=== PATIENT | male | born 1970 | race Caucasian/White ===

== ENCOUNTER 2018-02-15 00:26 | Emergency (ER) | payer BC ==
[~2018-02-15] VITALS: Ht 180.3 cm; Wt 79.6 kg
[~2018-02-15 00:26] MED LIST: CILASTATIN; Daptomycin; IMIPENEM; [UNRECOGNIZED DRUG - CODE] PO
[2018-02-15 00:33] VITALS: TEMP 36.5; Ht 180.3 cm; Wt 79.6 kg
--- NOTE | 2018-02-15 02:33 | EMERGENCY ROOM VISIT NOTE ---
History First contact with patient: 00:36 Chief Complaint: FOOT PAIN Stated Complaint: LEFT FOOT PAIN History of Present Illness The patient is a 47 year old male who presents to the Emergency Room via private vehicle with complaints of "left foot pain". The patient states that about 3 weeks ago he struck the top of his left foot off with a metal object. He notes that it hurt for about 1 day and then went away. He then states that tonight while sleeping he began with pain in the same area that radiated to the medial aspect of his left foot. He rates the overall pain as a 6/10. No fevers , chills. He notes no history of clots. It is worse with ambulation. Review of Systems A complete 6-point Review of Systems was discussed with the patient, with pertinent positives and negatives listed in the History of Present Illness. All remaining Review of Systems questions can be considered negative unless otherwise specified. Past Medical/Surgical History Surgical Problems: (1) H/O vasectomy Family History No significant family history Social History Smoking Status: Never Smoker Alcohol Use: occasionally Marital Status: in relationship Housing Status: lives with family, lives with significant other Current/Historical Medications Scheduled Niacin (Niacin), 500 MG PO BID Physical Exam Vital Signs Date Time Temp Pulse Resp B/P (MAP) Pulse Ox O2 Delivery O2 Flow Rate FiO2 02/15/18 02:40 62 18 114/69 100 Room Air 02/15/18 02:07 65 18 100/77 99 Room Air 02/15/18 00:33 36.5 67 18 108/57 98 Room Air Physical Exam VITAL SIGNS - Vital signs and nursing notes were reviewed. Stable. Afebrile. GENERAL -47-year-old male appearing his stated age who is in no acute distress. Communicates well with provider and answers questions appropriately. SKIN - Without rashes. No meningeal or petechial rash. The skin overlying the patient's left foot is unremarkable. EXTREMITIES - No clubbing or peripheral cyanosis. No pretibial edema present. Point tenderness overlying the patient's proximal anterior metatarsals and medial foot inferior to the left medial malleolus region. No breaks in integument. +5/5 strength noted in UE/LE bilaterally. Medical Decision & Procedures ER Provider Diagnostic Interpretation: Ultrasound venous left lower extremity: Findings: Normal compressibility is demonstrated from the common femoral vein to the popliteal vein. There is normal response to augmentation. Normal spontaneous phasic flow is noted. Impression: No evidence of deep vein thrombosis in the left lower extremity. Radiologist: Munir Colin MD. Left foot x-ray: Per my interpretation no fracture, dislocation. Medical Decision Patient was seen and evaluated as above in room a 10. Review was performed of nursing notes and vital signs. After obtaining a thorough history and physical examination the above work up was performed. He presents to us today with left foot pain. He is nontoxic on exam. No systemic symptoms. X-ray per my interpretation reveals no fracture. Ultrasound reveals no DVT. I suspect he likely has either a soft tissue contusion or minor nerve irritation which should likely subside with conservative management. Manoj wrap was applied. Crutches were provided. He is to follow-up with orthopedics or return with worsening. The patient was educated upon management, educated upon todays findings/results, educated upon symptoms in which to return, had questions answered prior to discharge, and was discharged home in good condition. In the evaluation and treatment of this patient the following differential diagnoses were entertained: Fracture, dislocation, contusion, DVT, among others Impression Primary Impression: Foot pain Departure Information Dispostion Home / Self-Care Condition GOOD Referrals Sumit Jacobs D.O. (PCP) Bryan Villarreal M.D. Patient Instructions My [facility] Additional Instructions You have been treated in the Emergency Department for left foot pain. X-ray at this time does not reveal any fracture. The ultrasound shows no blood clot. For pain control, you can use the following [id number] medicines (if >12 yo): - Regular strength (325mg/tab) Tylenol (acetaminophen) 2 tabs every 4-6 hours as needed. Do not exceed 12 tablets in a 24 hour period. Avoid taking more than 4 grams (4000 mg) of Tylenol per day. This includes any other sources of acetaminophen you may take on a regular basis. - Regular strength (200 mg/tab) Advil (ibuprofen) 1-2 tabs every 4-6 hours as needed. Do not exceed a dose of 3200 mg per day. If this is a recent injury (<24 hrs), ice can be applied to the area of pain for the first 3 days to help decrease pain and inflammation. You have been provided the number for an Orthopaedic Surgeon. You should call this number as soon as possible to establish a follow-up visit from today's Emergency Department visit. Please use the wrap for compression. Please be careful not to apply this to tight. Use the crutches you have been provided to keep ALL weight off of the foot until weight bearing is tolerable. Return to the Emergency Department if your current symptoms worsen despite treatment course outlined above, or if you develop any of the following symptoms : intractable pain despite aforementioned treatment course or new onset of numbness or tingling of the foot.
[2018-02-15 02:40] VITALS: BP 114/69; PULSE 62; O2SAT 100
[2018-02-15] MEDS ORDERED: NIAC500T11 PO (02:44)
--- NOTE | 2018-02-15 07:13 | DIAGNOSTIC IMAGING REPORT ---
LEFT LOWER EXTREMITY VENOUS DOPPLER HISTORY: L foot pain COMPARISON STUDY: None. FINDINGS: There is normal compressibility, flow, and augmentation within the left lower extremity deep venous system. IMPRESSION: No DVT within the left lower extremity. Electronically signed by: Farhat Flynn M.D. 02/15/2018 7:11 AM Dictated Date/Time: 02/15/2018 7:11 AM
--- NOTE | 2018-02-15 08:12 | DIAGNOSTIC IMAGING REPORT ---
LEFT FOOT 3 VIEWS HISTORY: L foot pain COMPARISON: None. FINDINGS: There is no fracture or dislocation. Soft tissues are unremarkable. No radiopaque foreign bodies. Mild cartilage space narrowing and tiny marginal osteophytes at the first MTP joint consistent with degenerative change. IMPRESSION: Mild osteoarthritis at the first MTP joint. No fractures within the left foot. Electronically signed by: Farhat Flynn M.D. 02/15/2018 8:10 AM Dictated Date/Time: 02/15/2018 8:07 AM
== END 2018-02-15 02:59 | disposition home or self-care (01) ==
LOC: C.EDB 00:27 → C.EDA 02:59
DX: M79.672 Pain in left foot (principal); W22.8XXA Striking against or struck by other objects, initial encounter